=== PATIENT | male | born 1975 | race Caucasian/White ===

== ENCOUNTER 2016-11-04 08:00 | Day surgery (SDC) | payer OTHER ==
[~2016-11-04 08:00] MED LIST: IV START KIT ONE; LACTATED RINGERS 1,000 ML ONE
[2016-11-04] MEDS ORDERED: LACTATED RINGERS 1,000 ML IV SCH (08:10)
[2016-11-04] MEDS ORDERED: ONDANSETRON 4 MG/2ML 2 ML VIAL IV PRN (08:10)
[2016-11-04] MEDS ORDERED: LIDOCAINE 1% 2 ML VIAL ID PRN (08:10)
[2016-11-04] MEDS ORDERED: PROPOFOL 60 ML IV ONE (08:43)
[2016-11-04 14:53] LABS: HELICOBACTER PYLORII DETECTION NEGATIVE (NEGATIVE)
--- NOTE | 2016-11-08 14:26 | SURGPATH ---
[facility] [address] [place] [id number] Patient Name: NAVYA RICH MR#: [id number] : 1975 Gender: M Specimen #: [id number] Collected: 11/04/2016 Received: 11/05/2016 Reported: 11/08/2016 Submitting Phys: SALEEM SAMUEL Copy To Phys: [facility] Clinical History / Pre-Operative Diagnosis: Dysphagia; rule out gastritis Specimen Source / Surgical Procedure Performed: #1-antrum x2; #2-GE junction x3 Interpretation: 1. GASTRIC ANTRUM, BIOPSY: - NO PATHOLOGIC ABNORMALITIES 2. GE JUNCTION, BIOPSY: - EROSIVE ESOPHAGITIS - NO FUNGAL ORGANISMS IDENTIFIED Electronically Signed Out Adam Ireland M.D. Gross Description: #1 The specimen is received in a formalin filled container labeled with the patient's name and "antrum". Two mendes biopsies are 0.4 and 0.5 cm. Totally embedded in cassette #1. #2 The specimen is received in a formalin filled container labeled with the patient's name and "GE junction". Three johnson biopsies are 0.2, 0.4 and 0.6 cm. Totally embedded in cassette #2. Bethany Avila Microscopic Description: 1. The sections show fragments of gastric mucosa exhibiting a normal architectural pattern. There are no inflammatory or neoplastic features and there are no Helicobacter-like organisms identified. 2. The sections show squamous because with ulceration and acute inflammation. The epithelium shows reactive changes without atypia. The fungal PAS stain is negative for fungal organisms. 1: 64830 2: 03663, 58578 K20.8
== END 2016-11-04 10:51 | disposition home or self-care (01) ==
LOC: SDC 08:00
PROVIDERS: ATTEND Surgery
PROC: 0D748ZZ Dilation of Esophagogastric Junction, Via Natural or Artificial Opening Endoscopic (ICD-10-PCS; principal; 2016-11-04)
PROC: 0DB68ZX Excision of Stomach, Via Natural or Artificial Opening Endoscopic, Diagnostic (ICD-10-PCS; 2016-11-04)
PROC: 0DB48ZX Excision of Esophagogastric Junction, Via Natural or Artificial Opening Endoscopic, Diagnostic (ICD-10-PCS; 2016-11-04)
DX: K22.2 Esophageal obstruction (principal); K44.9 Diaphragmatic hernia without obstruction or gangrene; K20.8 Other esophagitis
CPT/HCPCS: 43249; 43239; 87081; J7120